=== PATIENT | female | born 1995 | race Caucasian/White ===

== ENCOUNTER 2017-01-18 20:51 | Emergency (ER) | payer OTHER ==
[~2017-01-18] VITALS: Ht 160 cm; Wt 59.2 kg
[~2017-01-18 20:51] MED LIST: ABILIFY2 MG PO; AMBIZINE25 MG PO; DEPO-PROVERA; ENDOCET 5-3251 EACH PO; GEODON20 MG PO; IBUPROFEN800 MG PO; NAPROSYN500 MG PO; NAPROXEN500 MG PO; PERCOCET 5/31 TABLET PO; PROTONIX20 MG PO; SEROQUEL50 MG PO; ULTRAM50 MG PO; VYVANSE; VYVANSE40 MG PO; ZOFRAN ODT4 MG PO
[2017-01-18 21:42] LABS: HEMATOCRIT 40.4 % (36.0-46.0); MCH 29.8 PG (29.0-34.0); MCHC 32.9 G/DL (30.0-36.0); MCV 90.4 FL (83-99); MEAN PLAT.VOLUME 10.2 uM^3 (9.5-12.4); PLATELET COUNT 265 K/uL (156-360); RBC DIS.WIDTH-CV 12.4 % (11.8-14.6); RBC DIS.WIDTH-SD 40.9 % (39-53); RED BLOOD COUNT 4.47 M/uL (3.80-5.20); WHITE BLOOD COUNT 10.1 K/uL (4.1-10.2)
[2017-01-18 21:51] LABS: CHLORIDE 109 mEq/L (99-109); POTASSIUM 3.3 mEq/L (3.7-5.4); SODIUM 140 mEq/L (136-147)
[2017-01-18 21:54] LABS: GLUCOSE 99 mg/dL (70-99)
[2017-01-18 21:55] LABS: ANION GAP 10 MEQ/L (2-14)
[2017-01-18 21:56] LABS: TOTAL BILIRUBIN 0.3 mg/dL (0.0-1.0)
[2017-01-18 21:57] LABS: ALKALINE PHOSPHATASE 81 IU/L (3-129); GFR ESTIMATE (CALCULATED) > 59 mL/min/
[2017-01-18 21:58] LABS: UREA NITROGEN (BUN) 11 mg/dL (9-23)
[2017-01-18 22:01] LABS: ADD MIUA? YES; BILIRUBIN NEGATIVE; BLOOD NEGATIVE; COLOR YELLOW ((YELLOW)); GLUCOSE (STRIP) NEGATIVE; KETONES NEGATIVE; LEUKOCYTES NEGATIVE; NITRITE NEGATIVE; PROTEIN (STRIP) NEGATIVE; SPECIFIC GRAVITY 1.018 (1.000-1.030); UROBILINOGEN 0.2 MG/DL (0.2-1.0)
[2017-01-18 22:04] LABS: BACTERIA RARE /HPF; EPITHELIAL CELLS 1+ /HPF; MUCUS 1+ /LPF; RED BLOOD CELLS 0-5 /HPF (0-5); UCUL ADDED? NO; WHITE BLOOD CELLS 0-5 /HPF (0-5)
[2017-01-18 22:06] LABS: QUANTITATIVE HCG 1135.9 MIU/ML
[2017-01-18] MEDS ORDERED: ZOFRAN ODT4 MG PO (22:53)
[2017-01-18 23:17] VITALS: BP 128/81
== END 2017-01-18 23:19 | disposition home or self-care (01) ==
LOC: EME 20:51
DX: O26.899 Other specified pregnancy related conditions, unspecified trimester (principal); R11.0 Nausea; Z3A.00 Weeks of gestation of pregnancy not specified
CPT/HCPCS: 80053; 81003; 84702; 85027; 99281; 99284

== ENCOUNTER 2017-07-08 02:30 | Outpatient (CLI) | payer OTHER ==
[~2017-07-08] VITALS: Ht 160 cm; Wt 66.7 kg
[2017-07-08 02:51] VITALS: BP 115/67
[2017-07-08 03:27] LABS: BASOPHIL (%) 0.4 % (0-1); BASOPHIL COUNT 0.1 K/uL (0-0.1); EOSINOPHIL (%) 0.9 % (0-5); EOSINOPHIL COUNT 0.1 K/uL (0-0.3); HEMATOCRIT 32.1 % (36.0-46.0); HEMOGLOBIN 10.9 G/DL (11.9-15.5); IMMATURE GRANULOCYTE (%) 1.3 % (0.0-0.7); LYMPHOCYTE (%) 27.2 % (15-42); LYMPHOCYTE COUNT 3.8 K/uL (1.0-2.8); MCH 29.9 PG (29.0-34.0); MCV 88.2 FL (83-99); MONOCYTE COUNT 0.8 K/uL (0-0.8); NEUTROPHIL (%) 64.2 % (45-76); NEUTROPHIL COUNT 9.1 K/uL (1.8-6.4); PLATELET COUNT 253 K/uL (156-360); RBC DIS.WIDTH-CV 11.9 % (11.8-14.6); RBC DIS.WIDTH-SD 38.5 % (39-53); RED BLOOD COUNT 3.64 M/uL (3.80-5.20); WHITE BLOOD COUNT 14.1 K/uL (4.1-10.2)
[2017-07-08 03:31] LABS: APPEARANCE CLOUDY ((CLEAR)); BILIRUBIN NEGATIVE; BLOOD SMALL; COLOR YELLOW ((YELLOW)); GLUCOSE (STRIP) NEGATIVE; KETONES 5; LEUKOCYTES TRACE; NITRITE NEGATIVE; PROTEIN (STRIP) NEGATIVE
[2017-07-08 03:36] LABS: CHLORIDE 108 mEq/L (99-109); POTASSIUM 3.4 mEq/L (3.7-5.4); SODIUM 137 mEq/L (136-147)
[2017-07-08 03:38] LABS: GLUCOSE 119 mg/dL (70-99); TOTAL PROTEIN 6.9 g/dL (6.4-8.3)
[2017-07-08 03:40] LABS: TOTAL BILIRUBIN 0.3 mg/dL (0.0-1.0)
[2017-07-08 03:42] LABS: ALKALINE PHOSPHATASE 111 IU/L (3-129); CREATININE 0.6 mg/dL (0.6-1.3); GFR ESTIMATE (CALCULATED) > 59 mL/min/
[2017-07-08 03:43] LABS: UREA NITROGEN (BUN) 10 mg/dL (9-23)
[2017-07-08 03:44] LABS: AST (GOT) 11 IU/L (2-34)
[2017-07-08 03:45] LABS: ALT (GPT) 8 IU/L (3-49)
[2017-07-08 03:50] LABS: BACTERIA 2+ /HPF; EPITHELIAL CELLS 1+ /HPF; MUCUS RARE /LPF; RED BLOOD CELLS 0-5 /HPF (0-5); UCUL ADDED? YES; WHITE BLOOD CELLS 0-5 /HPF (0-5)
[2017-07-08 03:51] LABS: AMORPHOUS URATES CRYSTALS 3+
[2017-07-08 04:06] LABS: AMPHETAMINE NEGATIVE (500 ng/mL); BARBITURATES NEGATIVE (200 ng/mL); BENZODIAZEPINES NEGATIVE (150 ng/mL); BUPRENORPHINE NEGATIVE (10 ng/mL); COCAINE NEGATIVE (150 ng/mL); METHADONE NEGATIVE (200 ng/mL); METHAMPHETAMINE NEGATIVE (500 ng/mL); OPIATES (MORPHINE) NEGATIVE (100 ng/mL); OXYCODONE NEGATIVE (100 ng/mL); PHENCYCLIDINE NEGATIVE (25 ng/mL); PROPOXYPHENE NEGATIVE (300 ng/mL); THC CANNABINOIDS NEGATIVE (50 ng/mL); TRICYCLIC ANTIDEPRESSANTS NEGATIVE (300 ng/mL)
[2017-07-08 07:39] VITALS: BP 99/50
[2017-07-08 11:33] VITALS: BP 97/51
== END 2017-07-08 15:20 | disposition home or self-care (01) ==
LOC: LDRP-OP 02:30 → 2WEST 02:31 → LDRP-OP 11-22 11:08
PROVIDERS: Nurse Practitioner
DX: O99.89 Other specified diseases and conditions complicating pregnancy, childbirth and the puerperium (principal); M54.9 Dorsalgia, unspecified; M41.9 Scoliosis, unspecified; R10.9 Unspecified abdominal pain; O99.353 Diseases of the nervous system complicating pregnancy, third trimester; G40.909 Epilepsy, unspecified, not intractable, without status epilepticus; O99.343 Other mental disorders complicating pregnancy, third trimester; F32.9 Major depressive disorder, single episode, unspecified; F41.9 Anxiety disorder, unspecified; F90.9 Attention-deficit hyperactivity disorder, unspecified type; O99.333 Smoking (tobacco) complicating pregnancy, third trimester; F17.200 Nicotine dependence, unspecified, uncomplicated; Z81.8 Family history of other mental and behavioral disorders; Z82.5 Family history of asthma and other chronic lower respiratory diseases; Z82.0 Family history of epilepsy and other diseases of the nervous system; Z3A.29 29 weeks gestation of pregnancy
CPT/HCPCS: 59025; 76770; 76818; 80053; 81003; 82731; 85025; 87086; G0378; J7120

== ENCOUNTER 2017-08-28 14:01 | Outpatient (CLI) | payer OTHER ==
[~2017-08-28] VITALS: Ht 160 cm; Wt 69.5 kg
[2017-08-28 14:14] VITALS: BP 113/65
[2017-08-28 15:29] LABS: BASOPHIL (%) 0.3 % (0-1); EOSINOPHIL (%) 0.7 % (0-5); EOSINOPHIL COUNT 0.1 K/uL (0-0.3); HEMATOCRIT 30.1 % (36.0-46.0); HEMOGLOBIN 9.6 G/DL (11.9-15.5); IMMATURE GRANULOCYTE (%) 1.2 % (0.0-0.7); LYMPHOCYTE (%) 17.3 % (15-42); LYMPHOCYTE COUNT 2.1 K/uL (1.0-2.8); MCHC 31.9 G/DL (30.0-36.0); MCV 84.6 FL (83-99); MONOCYTE (%) 4.9 % (3-12); MONOCYTE COUNT 0.6 K/uL (0-0.8); NEUTROPHIL (%) 75.6 % (45-76); PLATELET COUNT 222 K/uL (156-360); RBC DIS.WIDTH-CV 13.5 % (11.8-14.6); RBC DIS.WIDTH-SD 42.2 % (39-53); RED BLOOD COUNT 3.56 M/uL (3.80-5.20); WHITE BLOOD COUNT 11.9 K/uL (4.1-10.2)
[2017-08-28 15:57] LABS: ALBUMIN 3.5 G/DL (3.2-4.8); ALKALINE PHOSPHATASE 159 IU/L (3-129); ALT (GPT) 6 IU/L (3-49); AST (GOT) 12 IU/L (2-34); CHLORIDE 106 MEQ/L (99-109); CREATININE 0.4 MG/DL (0.6-1.3); GFR ESTIMATE (CALCULATED) > 59 mL/min/; GLUCOSE 107 mg/dL (70-99); POTASSIUM 3.4 MEQ/L (3.7-5.4); SODIUM 135 MEQ/L (136-147); TOTAL BILIRUBIN 0.3 MG/DL (0.0-1.0); TOTAL PROTEIN 6.1 G/DL (6.4-8.3); UREA NITROGEN (BUN) 5 mg/dL (9-23)
== END 2017-08-28 16:40 | disposition home or self-care (01) ==
LOC: LDRP-OP 14:01 → 2WEST 14:02 → LDRP-OP 10-23 15:28
PROVIDERS: Obstetrics & Gynecology
DX: O26.893 Other specified pregnancy related conditions, third trimester (principal); R10.9 Unspecified abdominal pain; O99.343 Other mental disorders complicating pregnancy, third trimester; F41.9 Anxiety disorder, unspecified; F31.9 Bipolar disorder, unspecified; F90.9 Attention-deficit hyperactivity disorder, unspecified type; O99.353 Diseases of the nervous system complicating pregnancy, third trimester; G40.909 Epilepsy, unspecified, not intractable, without status epilepticus; O99.89 Other specified diseases and conditions complicating pregnancy, childbirth and the puerperium; M41.9 Scoliosis, unspecified; Z3A.36 36 weeks gestation of pregnancy
CPT/HCPCS: 59025; 80053; 85025; G0378

== ENCOUNTER 2017-09-05 09:04 | Outpatient (CLI) | payer OTHER ==
[2017-09-05 09:18] VITALS: BP 90/64
[2017-09-05 09:35] VITALS: BP 113/74
== END 2017-09-05 11:10 | disposition home or self-care (01) ==
LOC: LDRP-OP 09:04 → 2WEST 09:05 → LDRP-OP 10-23 18:56
DX: O36.8130 Decreased fetal movements, third trimester, not applicable or unspecified (principal); O99.343 Other mental disorders complicating pregnancy, third trimester; F41.9 Anxiety disorder, unspecified; F32.9 Major depressive disorder, single episode, unspecified; F90.9 Attention-deficit hyperactivity disorder, unspecified type; Z3A.37 37 weeks gestation of pregnancy; Z86.69 Personal history of other diseases of the nervous system and sense organs
CPT/HCPCS: 59025; G0378

== ENCOUNTER 2017-09-17 10:19 | Outpatient (CLI) | payer OTHER ==
[~2017-09-17] VITALS: Ht 160 cm; Wt 69.4 kg
[2017-09-17 10:32] VITALS: BP 115/72
[2017-09-17 11:34] VITALS: BP 108/58
[2017-09-17] MEDS ORDERED: ZOFRAN4 MG PO (11:39)
[2017-09-17] MEDS ORDERED: PRENATAL TABLE1 EAC3 PO (11:39)
[2017-09-17 12:57] LABS: HEMATOCRIT 31.2 % (36.0-46.0); HEMOGLOBIN 9.7 G/DL (11.9-15.5); MCHC 31.1 G/DL (30.0-36.0); PLATELET COUNT 235 K/uL (156-360); RBC DIS.WIDTH-CV 14.4 % (11.8-14.6); RBC DIS.WIDTH-SD 42.3 % (39-53); RED BLOOD COUNT 3.88 M/uL (3.80-5.20); WHITE BLOOD COUNT 12.1 K/uL (4.1-10.2)
[2017-09-17 12:58] LABS: ALBUMIN 3.3 G/DL (3.2-4.8); ALKALINE PHOSPHATASE 194 IU/L (3-129); ALT (GPT) 6 IU/L (3-49); AST (GOT) 12 IU/L (2-34); CHLORIDE 105 MEQ/L (99-109); CREATININE 0.4 MG/DL (0.6-1.3); GFR ESTIMATE (CALCULATED) > 59 mL/min/; GLUCOSE 81 mg/dL (70-99); POTASSIUM 3.6 MEQ/L (3.7-5.4); SODIUM 138 MEQ/L (136-147); TOTAL BILIRUBIN 0.4 MG/DL (0.0-1.0); TOTAL PROTEIN 5.6 G/DL (6.4-8.3); UREA NITROGEN (BUN) 5 mg/dL (9-23)
[2017-09-17 13:06] LABS: MCV 80.4 FL (83-99)
== END 2017-09-17 13:14 | disposition home or self-care (01) ==
LOC: LDRP-OP 10:19 → 2WEST 10:20 → LDRP-OP 10-23 11:50
PROVIDERS: Obstetrics & Gynecology
DX: O26.893 Other specified pregnancy related conditions, third trimester (principal); R42 Dizziness and giddiness; R11.0 Nausea; O99.013 Anemia complicating pregnancy, third trimester; Z3A.39 39 weeks gestation of pregnancy
CPT/HCPCS: 59025; 80053; 85027; G0378

== ENCOUNTER 2017-09-24 07:08 | Outpatient (CLI) | payer OTHER ==
[~2017-09-24] VITALS: Ht 160 cm; Wt 70.2 kg
[2017-09-24] VITALS (16 sets, daily range): BP systolic 97–120; BP diastolic 55–79
[~2017-09-24 07:08] MED LIST changes: +PRENATAL TABLE1 EAC3 PO; +ZOFRAN4 MG PO
[2017-09-24] MEDS ORDERED: TYLENOL EXTRA500 MG PO (07:38)
[2017-09-24 09:47] LABS: BASOPHIL (%) 0.4 % (0-1); EOSINOPHIL (%) 1.2 % (0-5); EOSINOPHIL COUNT 0.1 K/uL (0-0.3); HEMATOCRIT 30.8 % (36.0-46.0); HEMOGLOBIN 9.6 G/DL (11.9-15.5); IMMATURE GRANULOCYTE (%) 0.8 % (0.0-0.7); LYMPHOCYTE (%) 25.7 % (15-42); LYMPHOCYTE COUNT 2.3 K/uL (1.0-2.8); MCHC 31.2 G/DL (30.0-36.0); MCV 80.2 FL (83-99); MONOCYTE (%) 5.7 % (3-12); MONOCYTE COUNT 0.5 K/uL (0-0.8); NEUTROPHIL (%) 66.2 % (45-76); NEUTROPHIL COUNT 5.9 K/uL (1.8-6.4); PLATELET COUNT 232 K/uL (156-360); RED BLOOD COUNT 3.84 M/uL (3.80-5.20)
[2017-09-25] MEDS ORDERED: MOTRIN800 MG PO (21:16)
== END 2017-09-24 22:55 | disposition home or self-care (01) ==
LOC: LDRP-OP 07:08 → 2WEST 07:09 → LDRP-OP 11:56 → 2WEST 22:55 → LDRP-OP 10-23 13:23
PROVIDERS: Obstetrics & Gynecology
DX: O61.0 Failed medical induction of labor (principal); Z3A.40 40 weeks gestation of pregnancy
CPT/HCPCS: 59025; 85025; C1755; G0378; J7120

== ENCOUNTER 2017-09-25 10:58 | Inpatient (IN) | payer OTHER ==
[2017-09-25] VITALS (25 sets, daily range): BP systolic 90–133; BP diastolic 54–82
[~2017-09-25] VITALS: Ht 160 cm; Wt 70.0 kg
[~2017-09-25 10:58] MED LIST changes: +TYLENOL EXTRA500 MG PO
[2017-09-25 11:59] LABS: BASOPHIL (%) 0.4 % (0-1); EOSINOPHIL (%) 0.6 % (0-5); EOSINOPHIL COUNT 0.1 K/uL (0-0.3); HEMOGLOBIN 9.6 G/DL (11.9-15.5); IMMATURE GRANULOCYTE (%) 0.5 % (0.0-0.7); LYMPHOCYTE (%) 19.5 % (15-42); MCH 24.5 PG (29.0-34.0); MCV 79.1 FL (83-99); MONOCYTE (%) 4.3 % (3-12); MONOCYTE COUNT 0.4 K/uL (0-0.8); NEUTROPHIL (%) 74.7 % (45-76); NEUTROPHIL COUNT 7.6 K/uL (1.8-6.4); PLATELET COUNT 256 K/uL (156-360); RBC DIS.WIDTH-SD 43.1 % (39-53); RED BLOOD COUNT 3.92 M/uL (3.80-5.20); WHITE BLOOD COUNT 10.2 K/uL (4.1-10.2)
[2017-09-25] MEDS ORDERED: MOTRIN800 MG PO (21:16)
[2017-09-26 07:33] VITALS: BP 127/74
[2017-09-26 11:45] LABS: BASOPHIL (%) 0.3 % (0-1); EOSINOPHIL (%) 0.8 % (0-5); EOSINOPHIL COUNT 0.1 K/uL (0-0.3); HEMATOCRIT 26.5 % (36.0-46.0); HEMOGLOBIN 8.1 G/DL (11.9-15.5); IMMATURE GRANULOCYTE (%) 0.7 % (0.0-0.7); LYMPHOCYTE COUNT 2.7 K/uL (1.0-2.8); MCH 24.5 PG (29.0-34.0); MCHC 30.6 G/DL (30.0-36.0); MCV 80.1 FL (83-99); MONOCYTE (%) 5.6 % (3-12); MONOCYTE COUNT 0.8 K/uL (0-0.8); NEUTROPHIL (%) 73.6 % (45-76); NEUTROPHIL COUNT 10.5 K/uL (1.8-6.4); PLATELET COUNT 229 K/uL (156-360); RBC DIS.WIDTH-CV 15.1 % (11.8-14.6); RED BLOOD COUNT 3.31 M/uL (3.80-5.20); WHITE BLOOD COUNT 14.2 K/uL (4.1-10.2)
[2017-09-26 15:21] VITALS: BP 122/68
[2017-09-26 23:14] VITALS: BP 110/58
[2017-09-27 08:00] VITALS: BP 104/51
== END 2017-09-27 11:25 | disposition home or self-care (01) | DRG 775 ==
LOC: LDRP-OP 10:58 → 2WEST 10:59 → LDRP-OP 09-26 10:05 → 2WEST 09-27 11:25 → LDRP-OP 10-23 23:07
PROVIDERS: Midwife; Obstetrics & Gynecology
PROC: 00HU33Z Insertion of Infusion Device into Spinal Canal, Percutaneous Approach (ICD-10-PCS; principal; 2017-09-25)
PROC: 3E0P7VZ Introduction of Hormone into Female Reproductive, Via Natural or Artificial Opening (ICD-10-PCS; principal; 2017-09-25)
PROC: 10E0XZZ Delivery of Products of Conception, External Approach (ICD-10-PCS; principal; 2017-09-25)
PROC: 3E0R3BZ Introduction of Anesthetic Agent into Spinal Canal, Percutaneous Approach (ICD-10-PCS; principal; 2017-09-25)
PROC: 3E033VJ Introduction of Other Hormone into Peripheral Vein, Percutaneous Approach (ICD-10-PCS; principal; 2017-09-25)
DX: O36.5930 Maternal care for other known or suspected poor fetal growth, third trimester, not applicable or unspecified (principal); Z37.0 Single live birth; O99.344 Other mental disorders complicating childbirth; F41.9 Anxiety disorder, unspecified; O99.02 Anemia complicating childbirth; D50.9 Iron deficiency anemia, unspecified; F31.9 Bipolar disorder, unspecified; Z3A.40 40 weeks gestation of pregnancy
CPT/HCPCS: 59025; 85025; C1755; G0378; J3010; J7120